=== PATIENT | male | born 1995 | race Caucasian/White ===

== ENCOUNTER 2019-01-16 02:20 | Emergency (ER) | payer SELFPAY ==
[~2019-01-16] VITALS: Ht 182.9 cm; Wt 80.3 kg
--- NOTE | 2019-01-16 02:24 | ED.ADGEN ---
Adult General Chief Complaint Chief Complaint ".. I know I got bad teeth.. and I fracture off this one in the back .. years ago.. but now it is hurting.. and I got swelling on my face..." HPI HPI Patient is a 23 year old male who presents with above hx and complaints of dental pain and was appears to be dental abscess. On tooth 31. Patient has swelling on exterior mandible area. No trismus. Adenopathy at ankle jaw. Patient denies any history immunosuppression. Up-to-date with vaccinations. No recent travel. No specific ill contacts. Does have other areas of dental decay. Patient does smoke. Review of Systems Review of Systems Constitutional: Denies fever or chills [] Eyes: Denies change in visual acuity, redness, or eye pain [] HENT: Denies nasal congestion or sore throat []complaints of dental pain and facial swelling Respiratory: Denies cough or shortness of breath [] Cardiovascular: No additional information not addressed in HPI [] GI: Denies abdominal pain, nausea, vomiting, bloody stools or diarrhea [] : Denies dysuria or hematuria [] Musculoskeletal: Denies back pain or joint pain [] Integument: Denies rash or skin lesions [] Neurologic: Denies headache, focal weakness or sensory changes [] Endocrine: Denies polyuria or polydipsia [] All other systems were reviewed and found to be within normal limits, except as documented in this note. Family History Family History Noncontributory Current Medications Current Medications Current Medications Medications (Trade) Dose Ordered Sig/Yajaira Start Time Stop Time Status Last Admin Dose Admin Acetaminophen (Tylenol) 1,000 mg 1X ONCE 01/16/19 02:45 01/16/19 03:03 DC 01/16/19 02:59 1,000 MG Ceftriaxone Sodium (Rocephin Im) 1 gm 1X ONCE 01/16/19 02:45 01/16/19 03:03 DC 01/16/19 02:59 1 GM Ceftriaxone Sodium (Rocephin) 1 gm STK-MED ONCE 01/16/19 02:47 01/16/19 02:48 DC Ketorolac Tromethamine (Toradol Im) 60 mg 1X ONCE 01/16/19 02:45 01/16/19 03:03 DC 01/16/19 02:59 60 MG Metronidazole (Flagyl) 500 mg 1X ONCE 01/16/19 02:45 01/16/19 03:03 DC 01/16/19 02:59 500 MG Allergies Allergies Allergies Coded Allergies Type Severity Reaction Last Updated Verified No Known Drug Allergies 01/16/19 No Physical Exam Physical Exam Constitutional: Well developed, well nourished, moderately acute distress, non- toxic appearance. [] HENT: Normocephalic, atraumatic, bilateral external ears normal, oropharynx moist, no oral exudates, nose normal. [Dental caries and tooth 31 is decayed into gum. Mandible and facial swelling on a of tooth 31 Eyes: PERRLA, EOMI, conjunctiva normal, no discharge. [] Neck: Normal range of motion, no tenderness, supple, no stridor. [] Cardiovascular:Heart rate regular rhythm, no murmur [] Lungs & Thorax: Bilateral breath sounds equal at apex with scattered wheezes on auscultation [] Abdomen: Bowel sounds normal, soft, no tenderness, no masses, no pulsatile masses. [] Skin: Warm, dry, no erythema, no rash. [] Back: No tenderness, no CVA tenderness. [] Extremities: No tenderness, no cyanosis, no clubbing, ROM intact, no edema. [] Neurologic: Alert and oriented X 3, normal motor function, normal sensory function, no focal deficits noted. [] Psychologic: Affect normal, judgement normal, mood normal. [] Current Patient Data Vital Signs Vital Signs Date Time Temp Pulse Resp B/P (MAP) Pulse Ox O2 Delivery O2 Flow Rate FiO2 01/16/19 02:40 97.2 77 18 98 Room Air EKG EKG [] Radiology/Procedures Radiology/Procedures [] Course & Med Decision Making Course & Med Decision Making Pertinent Labs and Imaging studies reviewed. (See chart for details) Advised patient nothing we do tonight will fix his underlying problem. Must see a dentist that does dental extractions. Patient take Keflex 500 mg 3 times a day and Flagyl 500 mg 3 times a day. Patient encouraged to stop smoking. Take Tylenol and ibuprofen for pain. For marked pain to take Vicoprofen up to 4 times a day. Must follow-up. Return if any concerns. [] Final Impression Final Impression 1. Dental Pain[] tooth 31 2. Dental abscess tooth 31 3. Tobacco use Dragon Disclaimer Dragon Disclaimer This electronic medical record was generated, in whole or in part, using a voice recognition dictation system. Discharge Summary Visit Information Final Diagnosis Problems Medical Problems: (1) Dental abscess Status: Acute Brief Hospital Course Allergies Allergies Coded Allergies Type Severity Reaction Last Updated Verified No Known Drug Allergies 01/16/19 No Vital Signs Vital Signs Date Time Temp Pulse Resp B/P (MAP) Pulse Ox O2 Delivery O2 Flow Rate FiO2 01/16/19 02:40 97.2 77 18 98 Room Air Brief Hospital Course Mr. Schneider is a 23 old male who presented with dental pain and dental abscess tooth 31 Discharge Information Condition at Discharge: Stable Disposition/Orders: D/C to Home Dischare Medications Current Medications Ceftriaxone Sodium (Rocephin Im) 1 gm 1X ONCE IM Last administered on at 02:59; Admin Dose 1 GM; Start 01/16/19 at 02:45; Stop 01/16/19 at 03:03; Status DC Metronidazole (Flagyl) 500 mg 1X ONCE PO Last administered on 01/16/19at 02:59; Admin Dose 500 MG; Start 01/16/19 at 02:45; Stop 01/16/19 at 03:03; Status DC Ketorolac Tromethamine (Toradol Im) 60 mg 1X ONCE IM Last administered on 01/16/19at 02:59; Admin Dose 60 MG; Start 01/16/19 at 02:45; Stop 01/16/19 at 03:03; Status DC Acetaminophen (Tylenol) 1,000 mg 1X ONCE PO Last administered on 01/16/19at 02:59; Admin Dose 1,000 MG; Start 01/16/19 at 02:45; Stop 01/16/19 at 03:03; Status DC Ceftriaxone Sodium (Rocephin) 1 gm STK-MED ONCE .ROUTE ; Start 01/16/19 at 02:47; Stop 01/16/19 at 02:48; Status DC Active Scripts Active Flagyl (Metronidazole) 500 Mg Tablet 500 Mg PO TID 10 Days Keflex (Cephalexin) 500 Mg Capsule 500 Mg PO TID 10 Days Hydrocodone-Ibuprofen 7.5-200 (Hydrocodone/Ibuprofen) 1 Each Tablet 1 Tab PO PRN Q6HRS PRN Dragon Disclaimer This chart was dictated in whole or in part using Voice Recognition software in a busy, high-work load, and often noisy Emergency Department environment. It may contain unintended and wholly unrecognized errors or omissions. STEPHEN OJEDA MD Jan 16, 2019 02:24
[2019-01-16 02:40] VITALS: BP 117/69
[2019-01-16] MEDS ORDERED: METR500T PO (02:44)
[2019-01-16] MEDS ORDERED: HYDR-1179 PO (02:44)
[2019-01-16] MEDS ORDERED: CEPH-264 PO (02:44)
[2019-01-16] MEDS ORDERED: ACETAMINOPHEN 500 MG TABLET PO ONE (02:45)
[2019-01-16] MEDS ORDERED: KETOROLAC 60 MG/2 ML VIAL. IM ONE (02:45)
[2019-01-16] MEDS ORDERED: metroNIDAZOLE 500 MG TABLET PO ONE (02:45)
[2019-01-16] MEDS ORDERED: cefTRIAXone IM 1 GM VIAL IM ONE (02:45)
[2019-01-16] MEDS ORDERED: cefTRIAXone SODIUM 1 GM VIAL ONE (02:47)
== END 2019-01-16 03:00 | disposition home or self-care (01) ==
LOC: ER 02:20
DX: K04.7 Periapical abscess without sinus (principal); K02.9 Dental caries, unspecified; Z72.0 Tobacco use; Z79.899 Other long term (current) drug therapy
CPT/HCPCS: 96372; 99284; J0696; J1885

== ENCOUNTER 2019-05-04 15:13 | Emergency (ER) | payer SELFPAY ==
[~2019-05-04] VITALS: Ht 182.9 cm; Wt 85.3 kg
[~2019-05-04 15:13] MED LIST: CEPH-264 PO; HYDR-1179 PO; METR500T PO
[2019-05-04 15:23] VITALS: BP 115/65
== END 2019-05-04 15:20 | disposition left against medical advice (07) ==
LOC: ER 15:13
DX: S01.511A Laceration without foreign body of lip, initial encounter (principal); Z53.21 Procedure and treatment not carried out due to patient leaving prior to being seen by health care provider; W21.11XA Struck by baseball bat, initial encounter; Y93.89 Activity, other specified; Y92.89 Other specified places as the place of occurrence of the external cause; Y99.8 Other external cause status

== ENCOUNTER 2019-05-22 18:59 | Emergency (ER) | payer SELFPAY ==
[~2019-05-22] VITALS: Ht 182.9 cm; Wt 85.3 kg
--- NOTE | 2019-05-22 19:15 | ED.ADGEN ---
Past History Past Medical History: No Pertinent History Past Surgical History: No Surgical History Alcohol Use: Occasionally Drug Use: Marijuana Adult General Chief Complaint Chief Complaint ".. I know I have bad teeth.. and bad cavities..but tonight the whole Rt. side of my face and Rt. jaw blew up.. my neck on Rt side almost feels swollen... . It is so swollen..and painful... I feel like I am having fever and chills... " HPI HPI Patient is a 24 year old male who presents with complaints of dental pain . Patient has history of chronic dental cavities and pain. Patient however states that he has had marked swelling, erythema, and pain on the right side is face and right mandible. Patient has multiple areas dental decay but area of molar 31 it has eroded into the gum. There is no pointing abscess currently but he does have swelling on his right lower face mandible. No Trismus. Edema does not appear to have spread under the tongue or lower into soft tissue of neck. Does have adenopathy at ankle jaw. Patient denies history of immunosuppression. No history of IV drug use. Patient does smoke. No recent travel. No specific ill contacts. Review of Systems Review of Systems Constitutional: Subjective complaints of fever or chills [] Eyes: Denies change in visual acuity, redness, or eye pain [] HENT: Denies nasal congestion or sore throat []complaints of right facial and mandible swelling and pain Respiratory: Denies cough or shortness of breath [] Cardiovascular: No additional information not addressed in HPI [] GI: Denies abdominal pain, nausea, vomiting, bloody stools or diarrhea [] : Denies dysuria or hematuria [] Musculoskeletal: Denies back pain or joint pain [] Integument: Denies rash or skin lesions [] Neurologic: Denies headache, focal weakness or sensory changes [] Endocrine: Denies polyuria or polydipsia [] All other systems were reviewed and found to be within normal limits, except as documented in this note. Family History Family History Noncontributory Current Medications Current Medications Current Medications Medications (Trade) Dose Ordered Sig/Yajaira Start Time Stop Time Status Last Admin Dose Admin Ceftriaxone Sodium (Rocephin Im) 1 gm 1X ONCE 05/22/19 19:30 05/22/19 19:31 DC 05/22/19 19:36 1 GM Ketorolac Tromethamine (Toradol Im) 60 mg 1X ONCE 05/22/19 19:30 05/22/19 19:31 DC 05/22/19 19:37 60 MG Allergies Allergies Allergies Coded Allergies Type Severity Reaction Last Updated Verified No Known Drug Allergies 01/16/19 No Physical Exam Physical Exam Constitutional: inacute distress, non-toxic appearance. [] HENT: Normocephalic, atraumatic, bilateral external ears normal, oropharynx moist, no oral exudates, nose normal. Except findings as noted in history of present illness Eyes: PERRLA, EOMI, conjunctiva normal, no discharge. [] Neck: Normal range of motion, no tenderness, supple, no stridor. [] Cardiovascular:Heart rate regular rhythm, no murmur [] Lungs & Thorax: Bilateral breath sounds equal apex with scattered wheezes on auscultation [] Abdomen: Bowel sounds normal, soft, no tenderness, no masses, no pulsatile masses. [] Skin: Warm, dry, no erythema, no rash. [] Back: No tenderness, no CVA tenderness. [] Extremities: No tenderness, no cyanosis, no clubbing, ROM intact, no edema. [] Neurologic: Alert and oriented X 3, normal motor function, normal sensory function, no focal deficits noted. [] Psychologic: Affect anxious, judgement normal, mood normal. [] Current Patient Data Vital Signs Vital Signs Date Time Temp Pulse Resp B/P (MAP) Pulse Ox O2 Delivery O2 Flow Rate FiO2 05/22/19 20:00 100 18 95 05/22/19 18:59 98.4 Room Air EKG EKG [] Radiology/Procedures Radiology/Procedures [] Course & Med Decision Making Course & Med Decision Making Pertinent Labs and Imaging studies reviewed. (See chart for details) Advised patient must see a dentist or oral surgeon. Patient is unable to get into a dentist or a clinic locally consider follow-up at [facility] dental school or the oral surgery clinic. Take Keflex 500 mg 3 times a day. Take Tylenol and ibuprofen for pain. Must follow-up. Impressed upon patient this could become a serious medical issue if swelling and infection spreads into the soft tissue of the neck and under the tongue. Must be followed up. [] Final Impression Final Impression 1. Dental caries-dental pain 2. Facial cellulitis[] Dragon Disclaimer Dragon Disclaimer This electronic medical record was generated, in whole or in part, using a voice recognition dictation system. Dragon Disclaimer This chart was dictated in whole or in part using Voice Recognition software in a busy, high-work load, and often noisy Emergency Department environment. It may contain unintended and wholly unrecognized errors or omissions. STEPHEN OJEDA MD May 22, 2019 19:15
[2019-05-22] MEDS ORDERED: CEPH-264 PO (19:27)
[2019-05-22] MEDS ORDERED: KETOROLAC 60 MG/2 ML VIAL. IM ONE (19:30)
[2019-05-22] MEDS ORDERED: cefTRIAXone IM 1 GM VIAL IM ONE (19:30)
[2019-05-22 20:00] VITALS: BP 137/86
== END 2019-05-22 20:00 | disposition home or self-care (01) ==
LOC: ER 18:59
DX: K02.9 Dental caries, unspecified (principal); L03.211 Cellulitis of face
CPT/HCPCS: 96372; 99284; J0696; J1885

== ENCOUNTER 2019-09-26 04:15 | Emergency (ER) | payer SELFPAY ==
[~2019-09-26] VITALS: Ht 182.9 cm; Wt 85.3 kg
[2019-09-26] MEDS ORDERED: HYDR-3165 PO (04:34)
[2019-09-26] MEDS ORDERED: AMOX1TAB61 PO (04:34)
[2019-09-26] MEDS ORDERED: KETOROLAC 30 MG/ML VIAL. ONE (04:38)
[2019-09-26] MEDS ORDERED: KETOROLAC 60 MG/2 ML VIAL. IM ONE (04:45)
[2019-09-26] MEDS ORDERED: KETOROLAC 30 MG/ML VIAL. IM ONE (04:45)
[2019-09-26 05:10] VITALS: BP 106/65
--- NOTE | 2019-09-26 05:38 | PHYS DOC ---
Past History Past Medical History: No Pertinent History Past Surgical History: No Surgical History Alcohol Use: Occasionally Drug Use: None Adult General Chief Complaint Chief Complaint: DENTAL PROBLEM HPI HPI Patient is a [24 yo m with cracked tooth for one year now three days increased pain and swelling. patient notes that pain is increasing even just with closing jaw. mild swelling of jaw noted he says. he is going to try to get into a dentist osbaldo i did give him dental clinic information to prescribe him medication antibiotics return precautions advised. Current Medications Current Medications Current Medications Medications (Trade) Dose Ordered Sig/Yajaira Start Time Stop Time Status Last Admin Dose Admin Ketorolac Tromethamine (Toradol 30mg Vial) 30 mg STK-MED ONCE 09/26/19 04:38 09/26/19 04:38 DC Ketorolac Tromethamine (Toradol Im) 30 mg 1X ONCE 09/26/19 04:45 09/26/19 05:00 DC Allergies Allergies Allergies Coded Allergies Type Severity Reaction Last Updated Verified No Known Drug Allergies 01/16/19 No Physical Exam Physical Exam Constitutional: Well developed, well nourished, no acute distress, non-toxic appearance. [] HENT: Normocephalic, atraumatic, bilateral external ears normal, very poor dentition to large cavities basically have entirely eaten away at the left lower molar there is a small tender swelling to the angle of the mandible but no appreciable drainable abscess in the mouth. No Chula's angina findings. Eyes: PERRLA, EOMI, conjunctiva normal, no discharge. [] Neck: Normal range of motion, no tenderness, supple, no stridor. [] Pulmonary: Normal respiratory effort no increased work of breathing no obvious chest wall trauma Extremities: No tenderness, no cyanosis, no clubbing, ROM intact, no edema. [] Neurologic: Alert and oriented X 3, normal motor function, normal sensory function, no focal deficits noted. [] Psychologic: Affect normal, judgement normal, mood normal. [] Current Patient Data Vital Signs Vital Signs Date Time Temp Pulse Resp B/P (MAP) Pulse Ox O2 Delivery O2 Flow Rate FiO2 09/26/19 05:10 82 18 99 09/26/19 04:15 97.5 121/79 (93) Room Air EKG EKG [] Radiology/Procedures Radiology/Procedures [] Course & Med Decision Making Course & Med Decision Making Pertinent Labs and Imaging studies reviewed. (See chart for details) [] Dragon Disclaimer Dragon Disclaimer This electronic medical record was generated, in whole or in part, using a voice recognition dictation system. Departure Departure: Impression: Primary Impression: Toothache Disposition: HOME, SELF-CARE Condition: STABLE Patient Instructions: Toothache-Brief Scripts Hydrocodone Bit/Acetaminophen (NORCO 5-325 TABLET) 1 Each Tablet 1-2 TAB PO Q4-6HRS PRN for PAIN, #8 TAB Prov: LOUIS BECKHAM MD 09/26/19 Amoxicillin/Potassium Clav (AUGMENTIN 875-125 TABLET) 1 Each Tablet 1 TAB PO BID for tooth for 10 Days, #20 TAB 0 Refills Prov: LOUIS BECKHAM MD 09/26/19 LOUIS BECKHAM MD Sep 26, 2019 05:38
== END 2019-09-26 05:10 | disposition home or self-care (01) ==
LOC: ER 04:15
DX: K08.89 Other specified disorders of teeth and supporting structures (principal); K03.81 Cracked tooth
CPT/HCPCS: 96372; 99283; J1885

== ENCOUNTER 2020-04-15 15:21 | Emergency (ER) | payer SELFPAY ==
[~2020-04-15] VITALS: Ht 180.3 cm; Wt 93.6 kg
[~2020-04-15 15:21] MED LIST changes: +AMOX1TAB61 PO; +HYDR-3165 PO
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
[2020-04-15 17:07] VITALS: BP 106/65
== END 2020-04-15 17:07 | disposition left against medical advice (07) ==
LOC: ER 15:21
DX: S80.01XA Contusion of right knee, initial encounter (principal); S50.01XA Contusion of right elbow, initial encounter; S90.01XA Contusion of right ankle, initial encounter; Y08.89XA Assault by other specified means, initial encounter; Y93.89 Activity, other specified; Y92.89 Other specified places as the place of occurrence of the external cause; Y99.8 Other external cause status
CPT/HCPCS: 99281; 99283

== ENCOUNTER 2021-02-27 10:42 | Emergency (ER) | payer SELFPAY ==
[~2021-02-27] VITALS: Ht 180.3 cm; Wt 93.6 kg
[2021-02-27] MEDS ORDERED: IV NORMAL SALINE 1,000ML 1,000 ML IV ONE (11:45)
[2021-02-27] MEDS ORDERED: ONDANSETRON PF 4 MG/2 ML VIAL. IVP ONE (11:45)
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
[2021-02-27 11:59] LABS: BASO # 0.1 x10^3/uL (0.0-0.2); BASO % 1 % (0-3); EOS % 0 % (0-3); HEMATOCRIT 49.8 % (39.0-53.0); HEMOGLOBIN 16.9 g/dL (13.0-17.5); LYMPH # 2.8 x10^3/uL (1.0-4.8); LYMPH % 25 % (24-48); MEAN CORPUSCULAR HEMOGLOBIN 31 pg (25-35); MEAN CORPUSCULAR HGB CONC 34 g/dL (31-37); MEAN CORPUSCULAR VOLUME 93 fL (79-100); MONO # 0.8 x10^3/uL (0.0-1.1); MONO % 8 % (0-9); NEUT # 7.5 x10^3uL (1.8-7.7); NEUT % 67 % (31-73); PLATELET COUNT 246 x10^3/uL (140-400); RED BLOOD COUNT 5.38 x10^6/uL (4.30-5.70); RED CELL DISTRIBUTION WIDTH 13.9 % (11.5-14.5); WHITE BLOOD COUNT 11.2 x10^3/uL (4.0-11.0)
--- NOTE | 2021-02-27 11:59 | NUR ---
FLOR WITH PAT TEAM NOTIFIED FOR AN EVALUATION @3089.
[2021-02-27 12:03] LABS: CALCIUM 9.8 mg/dL (8.5-10.1); CREATININE 0.8 mg/dL (0.7-1.3); GFR 119.8; POTASSIUM 3.5 mmol/L (3.5-5.1)
[2021-02-27 12:10] LABS: ACETAMIN < 2.0 mcg/mL (10-30); ETHANOL 39 mg/dL (0-10)
[2021-02-27 12:14] LABS: ALBUMIN 4.8 g/dL (3.4-5.0); ALBUMIN/GLOBULIN RATIO 1.1 (1.0-1.7); MAGNESIUM 1.8 mg/dL (1.8-2.4); TOTAL BILIRUBIN 1.2 mg/dL (0.2-1.0)
--- NOTE | 2021-02-27 12:32 | EKG ---
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
[2021-02-27 13:34] LABS: BACTERIA,URINE 0 /HPF (0-FEW); BILIRUBIN,URINE SMALL (NEG); CLARITY,URINE HAZY; COLOR,URINE AMBER; GLUCOSE,URINE NEG (NEG); NITRITE,URINE POS (NEG); RBC,URINE 0 /HPF (0-2); SQUAMOUS EPITHELIAL CELL,UR OCC /LPF; UROBILINOGEN,URINE 0.2 mg/dL (0.2 mg/dL); WBC,URINE OCC /HPF (0-4)
[2021-02-27 13:37] LABS: BARBITURATES NEG (NEG); BENZODIAZEPINES NEG (NEG); CANNABINOIDS POS (NEG); COCAINE NEG (NEG); METHADONE NEG (NEG); OPIATES NEG (NEG); PHENCYCLIDINE NEG (NEG)
[2021-02-27 13:38] VITALS: BP 118/76
[2021-02-27] MEDS ORDERED: CHLO25CA9 PO (13:42)
[2021-02-27 13:45] LABS: AMPHETAMINE/METHAMPHETAMINE NEG (NEG)
[2021-02-27] MEDS ORDERED: chlordiazePOXIDE HCL 25 MG CAPSULE PO ONE (13:45)
== END 2021-02-27 14:25 | disposition home or self-care (01) ==
LOC: ER 10:42
DX: F10.20 Alcohol dependence, uncomplicated (principal); R11.2 Nausea with vomiting, unspecified; Z20.822 Contact with and (suspected) exposure to COVID-19; Y90.1 Blood alcohol level of 20-39 mg/100 ml
CPT/HCPCS: 80053; 80307; 80329; 81001; 83605; 83735; 83880; 84100; 84484; 85025; 85610; 87086; 93005; 96361; 96374; 96375; 99284; C9803; G0480; J2060; J2405; J7030; U0003

== ENCOUNTER → 2021-06-21 | Outpatient (CLI) | payer OTHER ==
[~2021-06-21] MED LIST changes: +CHLO25CA9 PO
[2021-06-26 12:15] LABS: HCV ULTRA QUANT PCR 2620000 IU/mL (.)
== END ==
LOC: LAB 13:07
PROVIDERS: ATTEND Nurse Practitioner Family
DX: B20 Human immunodeficiency virus [HIV] disease (principal)
CPT/HCPCS: 86703; 86705; 86709; 86803; 87340; 87522

== ENCOUNTER 2021-09-11 01:07 | Emergency (ER) | payer SELFPAY ==
[~2021-09-11] VITALS: Ht 180.3 cm; Wt 77.3 kg
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
[2021-09-11 01:50] LABS: BASO # 0.1 x10^3/uL (0.0-0.2); BASO % 1 % (0-3); EOS # 0.1 x10^3/uL (0.0-0.7); EOS % 1 % (0-3); HEMOGLOBIN 15.2 g/dL (13.0-17.5); LYMPH % 46 % (24-48); MEAN CORPUSCULAR HEMOGLOBIN 32 pg (25-35); MEAN CORPUSCULAR HGB CONC 35 g/dL (31-37); MEAN CORPUSCULAR VOLUME 92 fL (79-100); MONO # 1.1 x10^3/uL (0.0-1.1); MONO % 10 % (0-9); NEUT # 4.5 x10^3uL (1.8-7.7); NEUT % 41 % (31-73); PLATELET COUNT 250 x10^3/uL (140-400); RED BLOOD COUNT 4.77 x10^6/uL (4.30-5.70); RED CELL DISTRIBUTION WIDTH 14.9 % (11.5-14.5)
--- NOTE | 2021-09-11 01:51 | RAD ---
XR HAND 3 VIEWS 09/11/2021 1:31 AM INDICATION: Punched wall COMPARISON: None available. TECHNIQUE: 3 views of the right and 3 views of the left hand are provided. FINDINGS/ IMPRESSION: Left hand: There is no acute fracture or dislocation. Joint spaces are maintained. Bone mineralizatio n is within normal limits. Regional soft tissues are within normal limits. There is no soft tissue ga s or osseous erosion. No radiopaque foreign body. Right hand: There is remodeling of the neck of the right fifth metacarpal. There is subtle linear nguyen ency in this region which could represent an acute on chronic fracture. Correlate with point tenderne ss. No significant displacement or intra-articular involvement. Ossific fragment the base of the fift h metatarsal could reflect sequela of remote trauma. Electronically signed by: Rosie Ernst MD (09/11/2021 1:49 AM) KEVON
[2021-09-11 01:55] LABS: CALCIUM 8.6 mg/dL (8.5-10.1); CREATININE 0.7 mg/dL (0.7-1.3); GFR 138.6; POTASSIUM 3.5 mmol/L (3.5-5.1)
[2021-09-11 01:57] LABS: BARBITURATES NEG (NEG); BENZODIAZEPINES NEG (NEG); CANNABINOIDS NEG (NEG); COCAINE NEG (NEG); METHADONE NEG (NEG); OPIATES NEG (NEG); PHENCYCLIDINE NEG (NEG)
[2021-09-11 02:00] LABS: BACTERIA,URINE 0 /HPF (0-FEW); CLARITY,URINE CLEAR; COLOR,URINE YELLOW; GLUCOSE,URINE NEG (NEG); NITRITE,URINE NEG (NEG); RBC,URINE 0 /HPF (0-2); SQUAMOUS EPITHELIAL CELL,UR OCC /LPF; UROBILINOGEN,URINE 0.2 mg/dL (0.2 mg/dL); WBC,URINE OCC /HPF (0-4)
[2021-09-11 02:01] LABS: ACETAMIN < 2.0 mcg/mL (10-30); ETHANOL 177 mg/dL (0-10)
[2021-09-11 02:01] LABS: AMPHETAMINE/METHAMPHETAMINE NEG (NEG)
[2021-09-11 02:02] LABS: SALIC < 2.8 mg/dL (2.8-20.0)
[2021-09-11] MEDS ORDERED: PENICILLIN V K 250 MG TABLET. PO ONE (08:45)
[2021-09-11] MEDS ORDERED: ACETAMINOPHEN 500 MG TABLET PO ONE (10:29)
[2021-09-11 15:00] VITALS: BP 127/70
[2021-09-11] MEDS ORDERED: PENI500T PO (15:26)
== END 2021-09-11 15:39 | disposition home or self-care (01) ==
LOC: ER 01:07
DX: S00.83XA Contusion of other part of head, initial encounter (principal); R45.851 Suicidal ideations; K02.9 Dental caries, unspecified; M79.641 Pain in right hand; M79.642 Pain in left hand; Z20.822 Contact with and (suspected) exposure to COVID-19; W22.01XA Walked into wall, initial encounter; Y93.89 Activity, other specified; Y92.89 Other specified places as the place of occurrence of the external cause; Y99.8 Other external cause status
CPT/HCPCS: 36415; 73130; 80048; 80307; 80329; 81001; 85025; 87426; 99285; G0480; U0003

== ENCOUNTER 2021-10-07 10:37 | Emergency (ER) | payer SELFPAY ==
[~2021-10-07] VITALS: Ht 180.3 cm; Wt 85.5 kg
[~2021-10-07 10:37] MED LIST changes: +PENI500T PO
--- NOTE | 2021-10-07 10:42 | PHYS DOC ---
Past History Past Medical History: No Pertinent History Additional Past Medical Histor: PTSD, Hep C Past Surgical History: Other Additional Past Surgical Histo: right arm reattached Alcohol Use: Heavy Adult General HPI HPI Patient is a 26-year-old male presents with chief complaint of nonbloody nonbilious emesis over the last couple of days. States he is a heavy alcohol user and last drink was last night. States he does drink daily and is usually vodka. Denies any other drug use. States he had been able to eat anything today but has had some fluids. Denies any recent travels, traumas, illnesses, fevers, chest pain, shortness of breath. Denies any dysuria, hematuria, blood in the stool or diarrhea. Review of Systems Review of Systems Review of systems otherwise unremarkable except noted in HPI Allergies Allergies Allergies Coded Allergies Type Severity Reaction Last Updated Verified No Known Drug Allergies 01/16/19 No Physical Exam Physical Exam Constitutional: Well developed, well nourished, no acute distress, non-toxic appearance. [] HENT: Normocephalic, atraumatic, oropharynx moist, no oral exudates, nose normal. [] Eyes:conjunctiva normal, no discharge. [] Neck: Normal range of motion, no tenderness, supple, no stridor. [] Cardiovascular:Heart rate regular rhythm, no murmur [] Lungs & Thorax: No respiratory distress Abdomen:soft, no tenderness, no masses, no pulsatile masses. [] Skin: Warm, dry, no erythema, no rash. [] Extremities: No tenderness, no cyanosis, no clubbing, ROM intact, no edema. [] Neurologic: Alert and oriented X 3, normal motor function, normal sensory function, no focal deficits noted. [] Psychologic: Affect normal, judgement normal, mood normal. [] EKG EKG [] Radiology/Procedures Radiology/Procedures [] Heart Score C/O Chest Pain: No Risk Factors: Risk Factors: DM, Current or recent (<one month) smoker, HTN, HLP, family history of CAD, obesity. Risk Scores: Risk Factors: DM, Current or recent (<one month) smoker, HTN, HLP, family history of CAD, obesity. Course & Med Decision Making Course & Med Decision Making Patient is a 26-year-old male who presents with nausea vomiting Vital signs initially notable for tachycardia which resolved in the ED. Physical exam noted above. Given medications for symptoms. Laboratory analysis not concerning. On reassessment patient stated symptoms had resolved, and took p.o. without issue. Stated that he needed to be discharged as he [facility] this [facility], was feeling better and ready to go home. Advised ceasing alcohol use after discussing the risks to health. Discussed symptomatic treatment at home and diet over the next few days. Advised to keep his upcoming appointment with [facility] tomorrow. Gave return precautions to the ED. Patient grateful, verbalized understanding and agreed with plan of discharge. [] Dragon Disclaimer Dragon Disclaimer This electronic medical record was generated, in whole or in part, using a voice recognition dictation system. Departure Departure: Impression: Primary Impression: Nausea & vomiting Disposition: HOME / SELF CARE / HOMELESS Condition: STABLE Referrals: PCP,DAVID (PCP) CARMEN CHAWLA MD Patient Instructions: Nausea and Vomiting Additional Instructions: Thank you for coming into the emergency department tonight and allowing us to take care of you. Please read the attached information carefully go over things we discussed. Please stay well-hydrated. Please take your nausea medicine as prescribed. Please eat a light clear diet over the next couple of days as we discussed. Please keep your appointment at the [facility] today. Please keep your upcoming appointment with [facility]. Please follow-up with your primary care physician as soon as you can to update on ED visit and set up a follow-up. Please come back with new or concerning symptoms as discussed. ERNA MONTGOMERY MD Oct 07, 2021 10:42
[2021-10-07] MEDS: IV RINGERS SOLUTION,LACTATED 1,000 ML IV ONE (11:00)
[2021-10-07] MEDS: diphenhydrAMINE 50 MG/ML VIAL IVP ONE (11:08)
[2021-10-07] MEDS: ONDANSETRON PF 4 MG/2 ML VIAL. IVP ONE (11:08)
[2021-10-07] MEDS: METOCLOPRAMIDE HCL 10 MG/2 ML VIAL. IVP ONE (11:09)
[2021-10-07 11:39] LABS: BASO # 0.1 x10^3/uL (0.0-0.2); BASO % 1 % (0-3); EOS % 0 % (0-3); HEMATOCRIT 44.8 % (39.0-53.0); HEMOGLOBIN 15.2 g/dL (13.0-17.5); LYMPH % 28 % (24-48); MEAN CORPUSCULAR HEMOGLOBIN 31 pg (25-35); MEAN CORPUSCULAR HGB CONC 34 g/dL (31-37); MEAN CORPUSCULAR VOLUME 92 fL (79-100); MONO # 0.4 x10^3/uL (0.0-1.1); MONO % 5 % (0-9); NEUT # 4.6 x10^3uL (1.8-7.7); NEUT % 65 % (31-73); PLATELET COUNT 216 x10^3/uL (140-400); RED BLOOD COUNT 4.86 x10^6/uL (4.30-5.70); RED CELL DISTRIBUTION WIDTH 13.9 % (11.5-14.5); WHITE BLOOD COUNT 7.1 x10^3/uL (4.0-11.0)
[2021-10-07 11:41] LABS: CREATININE 0.7 mg/dL (0.7-1.3); GFR 138.6; POTASSIUM 3.5 mmol/L (3.5-5.1)
[2021-10-07 11:47] LABS: ALBUMIN/GLOBULIN RATIO 1.1 (1.0-1.7); MAGNESIUM 1.6 mg/dL (1.8-2.4); TOTAL BILIRUBIN 0.4 mg/dL (0.2-1.0); TOTAL PROTEIN 7.5 g/dL (6.4-8.2)
[2021-10-07 12:30] VITALS: BP 134/80
[2021-10-07] MEDS: ONDANSETRON ODT 4 MG TAB.RAPDIS PO ONE (12:30)
[2021-10-07] MEDS: MAGNESIUM OXIDE 400 MG TABLET PO ONE (12:33)
[2021-10-07 12:53] LABS: CLARITY,URINE CLEAR; COLOR,URINE YELLOW; GLUCOSE,URINE NEG (NEG); NITRITE,URINE NEG (NEG); UROBILINOGEN,URINE 0.2 mg/dL (0.2 mg/dL)
[2021-10-07 13:04] LABS: BACTERIA,URINE 0 /HPF (0-FEW); RBC,URINE OCC /HPF (0-2); SQUAMOUS EPITHELIAL CELL,UR FEW /LPF; WBC,URINE OCC /HPF (0-4)
== END 2021-10-07 12:42 | disposition home or self-care (01) ==
LOC: ER 10:37
DX: R11.2 Nausea with vomiting, unspecified (principal); F10.20 Alcohol dependence, uncomplicated; Y90.9 Presence of alcohol in blood, level not specified
CPT/HCPCS: 36415; 80053; 81001; 83690; 83735; 85025; 96361; 96374; 96375; 99284; J1200; J2405; J2765; J7120; Q0162

== ENCOUNTER 2021-10-27 17:10 | Emergency (ER) | payer SELFPAY ==
[~2021-10-27] VITALS: Ht 180.3 cm; Wt 77.1 kg
--- NOTE | 2021-10-27 17:34 | EKG ---
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
[2021-10-27 17:50] LABS: BASO # 0.2 x10^3/uL (0.0-0.2); BASO % 2 % (0-3); EOS % 0 % (0-3); HEMATOCRIT 46.6 % (39.0-53.0); HEMOGLOBIN 15.8 g/dL (13.0-17.5); LYMPH # 2.9 x10^3/uL (1.0-4.8); LYMPH % 24 % (24-48); MEAN CORPUSCULAR HEMOGLOBIN 31 pg (25-35); MEAN CORPUSCULAR HGB CONC 34 g/dL (31-37); MEAN CORPUSCULAR VOLUME 91 fL (79-100); MONO # 0.6 x10^3/uL (0.0-1.1); MONO % 5 % (0-9); NEUT # 8.4 x10^3uL (1.8-7.7); NEUT % 69 % (31-73); PLATELET COUNT 278 x10^3/uL (140-400); RED CELL DISTRIBUTION WIDTH 12.9 % (11.5-14.5); WHITE BLOOD COUNT 12.1 x10^3/uL (4.0-11.0)
--- NOTE | 2021-10-27 17:50 | PHYS DOC ---
Past History Past Medical History: No Pertinent History Additional Past Medical Histor: HEP C (CARLOS ALBERTO GREGORY MD) Past Surgical History: Other Additional Past Surgical Histo: RT HAND (CARLOS ALBERTO GREGORY MD) Alcohol Use: Heavy (CARLOS ALBERTO GREGORY MD) General Adult EDM: Chief Complaint: OVERDOSE HPI: HPI: Patient is a 26-year-old male coming in for suicidal ideations. Patient tried to harm himself earlier by drinking half a bottle of ZzzQuil at noon, 5 hours prior to arrival. Patient has a history of SI and depression. Patient is taking Lexapro but does not think it has been helping. Patient has a history of alcohol abuse and drinks about a pint of whiskey a day. Patient states he has had alcohol withdrawal seizures in the past. Last drink around 8 PM yesterday. Denies any hallucinations. Patient states he does not have access to any guns. Is currently early with his girlfriend and cannot deny any recent stressors. (CARLOS ALBERTO GREGORY MD) Review of Systems: Review of Systems: All other systems within normal limits except for as noted in the HPI (CARLOS ALBERTO GREGORY MD) Current Medications: Current Meds: Current Medications Medications (Trade) Dose Ordered Sig/Yajaira Start Time Stop Time Status Last Admin Dose Admin Multivitamins/ Minerals 10 ml/ Folic Acid 1 mg/ Thiamine HCl 100 mg/Lactated Ringer's 1,011.3 ml @ 1,011.3 mls/hr 1X ONCE 10/27/21 18:00 10/27/21 18:59 (CARLOS ALBERTO GREGORY MD) Allergies: Allergies: Allergies Coded Allergies Type Severity Reaction Last Updated Verified No Known Drug Allergies 10/07/21 No (CARLOS ALBERTO GREGORY MD) Physical Exam: PE: Constitutional: Well developed, well nourished, no acute distress, non-toxic appearance. [] HENT: Normocephalic, atraumatic, bilateral external ears normal, nose normal. [] Eyes: PERRLA, conjunctiva normal, no discharge. [] Neck: No rigidity, supple, no stridor. [] Cardiovascular: Regular rate and rhythm, brisk cap refill [] Lungs & Thorax: Non labored symmetric respirations, no tachypnea or respiratory distress [] Abdomen: Soft, nondistended. Skin: Warm, dry, no erythema, no rash. [] Back: Unremarkable Extremities: No deformities, range of motion grossly intact, no lower extremity edema [] Neurologic: Alert and oriented X 3, no focal deficits noted. [] Psychologic: Affect normal, judgement normal, mood normal. [] (CARLOS ALBERTO GREGORY MD) EKG: EKG: Sinus tachycardia, heart rate 103 bpm, slight left axis deviation, normal intervals, no ectopy. No STEMI [] (CARLOS ALBERTO GREGORY MD) Radiology/Procedures: Radiology/Procedures: [] (CARLOS ALBERTO GREGORY MD) Heart Score: C/O Chest Pain: N/A Risk Factors: Risk Factors: DM, Current or recent (<one month) smoker, HTN, HLP, family history of CAD, obesity. Risk Scores: Score 0 - 3: 2.5% MACE over next 6 weeks - Discharge Home Score 4 - 6: 20.3% MACE over next 6 weeks - Admit for Clinical Observation Score 7 - 10: 72.7% MACE over next 6 weeks - Early Invasive Strategies (CARLOS ALBERTO GREGORY MD) Course & Med Decision Making: Course & Med Decision Making Pending medical clearance and labs at shift change. (CARLOS ALBERTO GREGORY MD) Course & Med Decision Making Patient care handed off to me at checkout. Patient alert and oriented no acute distress. Laboratory analysis not concerning. Vital signs not concerning. Patient able to take p.o. Patient cleared from poison control. Bed found at [facility] in the morning, 10/28/2021. (ERNA MONTGOMERY MD) Dragon Disclaimer: Dragon Disclaimer: This electronic medical record was generated, in whole or in part, using a voice recognition dictation system. (CARLOS ALBERTO GREGORY MD) Departure Departure: Referrals: DAYA RODRIGUEZ APRN (PCP) CARLOS ALBERTO GREGORY MD Oct 27, 2021 17:50 ERNA MONTGOMERY MD Oct 27, 2021 22:18
[2021-10-27 17:58] LABS: CALCIUM 8.8 mg/dL (8.5-10.1); CREATININE 0.9 mg/dL (0.7-1.3); GFR 103.7; POTASSIUM 3.6 mmol/L (3.5-5.1)
[2021-10-27] MEDS ORDERED: MVI, ADULT NO.4 WITH VIT K 10 ML, FOLIC ACID INJ 1 MG, THIAMINE INJ 100 MG in IV RINGER... IV ONE (18:00)
[2021-10-27 18:03] LABS: ALBUMIN 3.8 g/dL (3.4-5.0); ALBUMIN/GLOBULIN RATIO 1.1 (1.0-1.7); MAGNESIUM 1.7 mg/dL (1.8-2.4); TOTAL BILIRUBIN 0.3 mg/dL (0.2-1.0); TOTAL PROTEIN 7.4 g/dL (6.4-8.2)
[2021-10-27 18:05] LABS: ACETAMIN < 2 mcg/mL (10-30); ETHANOL < 10 mg/dL (0-10); SALIC 3.2 mg/dL (2.8-20.0)
[2021-10-27 18:55] LABS: CLARITY,URINE CLEAR; COLOR,URINE YELLOW; GLUCOSE,URINE NEG (NEG)
[2021-10-27 18:56] LABS: BACTERIA,URINE 0 /HPF (0-FEW); NITRITE,URINE NEG (NEG); RBC,URINE 0 /HPF (0-2); UROBILINOGEN,URINE 0.2 mg/dL (0.2 mg/dL); WBC,URINE 0 /HPF (0-4)
[2021-10-27 19:01] LABS: BARBITURATES NEG (NEG); BENZODIAZEPINES NEG (NEG); CANNABINOIDS NEG (NEG); COCAINE NEG (NEG); METHADONE NEG (NEG); OPIATES NEG (NEG); PHENCYCLIDINE NEG (NEG)
[2021-10-27 19:02] LABS: AMPHETAMINE/METHAMPHETAMINE NEG (NEG)
[2021-10-27 19:24] LABS: INFLUENZA A PATIENT NEGATIVE (NEGATIVE); INFLUENZA B PATIENT NEGATIVE (NEGATIVE)
[2021-10-27] MEDS ORDERED: FOLIC ACID 1 MG TABLET ONE (20:29)
[2021-10-27] MEDS ORDERED: THIAMINE 200 MG/2 ML VIAL. IV ONE (20:29)
--- NOTE | 2021-10-27 20:49 | EKG ---
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
[2021-10-27] MEDS ORDERED: IBUPROFEN 600 MG TABLET. PO ONE (23:00)
[2021-10-27] MEDS ORDERED: ACETAMINOPHEN 500 MG TABLET PO ONE (23:00)
--- NOTE | 2021-10-28 02:34 | EKG ---
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
[2021-10-28] MEDS ORDERED: diphenhydrAMINE 50 MG/ML VIAL IVP ONE (02:45)
[2021-10-28] MEDS ORDERED: LORA-254 PO (14:04)
[2021-10-28 15:32] VITALS: BP 163/80
== END 2021-10-28 15:33 | disposition home or self-care (01) ==
LOC: ER 17:10
DX: T50.992A Poisoning by other drugs, medicaments and biological substances, intentional self-harm, initial encounter (principal); F10.10 Alcohol abuse, uncomplicated; Z20.822 Contact with and (suspected) exposure to COVID-19; Y90.0 Blood alcohol level of less than 20 mg/100 ml; Y92.89 Other specified places as the place of occurrence of the external cause
CPT/HCPCS: 36415; 80053; 80307; 80329; 81001; 83735; 84484; 85025; 87428; 93005; 96374; 96375; 99285; G0480; J1200; J2060; J7120; U0003

== ENCOUNTER 2021-11-03 13:51 | Emergency (ER) | payer SELFPAY ==
[~2021-11-03] VITALS: Ht 180.3 cm; Wt 87.2 kg
[~2021-11-03 13:51] MED LIST changes: +LORA-254 PO
[2021-11-03] MEDS ORDERED: ONDANSETRON ODT 4 MG TAB.RAPDIS PO ONE (14:00)
--- NOTE | 2021-11-03 14:02 | PHYS DOC ---
Past History Past Medical History: No Pertinent History Additional Past Medical Histor: HEP C (CARLOS ALBERTO GREGORY MD) Past Surgical History: Other Additional Past Surgical Histo: RT HAND (CARLOS ALBERTO GREGORY MD) Alcohol Use: Heavy (CARLOS ALBERTO GREGORY MD) General Adult HPI: HPI: Patient is a 26-year-old male brought in by EMS from home after intentional overdose. Patient took approximately 5 of the 10 mg Lexapro tablets at approximately 1305. Patient states his girlfriend called EMS after he had told her what he had done. Patient states he had been taking them up till a few days ago he stopped. Denies any coingestions, states he drank a beer this morning. Patient was seen here a week ago and discharged with safety plan and had adequate follow-up. Patient requested to follow-up for his alcohol abuse and [facility]. Patient was given activated charcoal by EMS which he had vomited up prior to arrival. (CARLOS ALBERTO GREGORY MD) Review of Systems: Review of Systems: All other systems within normal limits except for as noted in the HPI (CARLOS ALBERTO GREGORY MD) Allergies: Allergies: Allergies Coded Allergies Type Severity Reaction Last Updated Verified No Known Drug Allergies 10/07/21 No (CARLOS ALBERTO GREGORY MD) Physical Exam: PE: Constitutional: Well developed, well nourished, no acute distress, non-toxic appearance. [] HENT: Normocephalic, atraumatic, bilateral external ears normal, nose normal. [] Eyes: PERRLA, conjunctiva normal, no discharge. [] Neck: No rigidity, supple, no stridor. [] Cardiovascular: Regular rate and rhythm, brisk cap refill [] Lungs & Thorax: Non labored symmetric respirations, no tachypnea or respiratory distress [] Abdomen: Soft, nondistended. Skin: Warm, dry, no erythema, no rash. [] Back: Unremarkable Extremities: No deformities, range of motion grossly intact, no lower extremity edema [] Neurologic: Alert and oriented X 3, no focal deficits noted. [] Psychologic: Affect normal, judgement normal, mood normal. [] (CARLOS ALBERTO GREGORY MD) EKG: EKG: Sinus rhythm, heart rate 96 beats minute, normal intervals, no ectopy, no STEMI [] (CARLOS ALBERTO GREGORY MD) Radiology/Procedures: Radiology/Procedures: [] (CARLOS ALBERTO GREGORY MD) Heart Score: C/O Chest Pain: No Risk Factors: Risk Factors: DM, Current or recent (<one month) smoker, HTN, HLP, family history of CAD, obesity. Risk Scores: Score 0 - 3: 2.5% MACE over next 6 weeks - Discharge Home Score 4 - 6: 20.3% MACE over next 6 weeks - Admit for Clinical Observation Score 7 - 10: 72.7% MACE over next 6 weeks - Early Invasive Strategies (CARLOS ALBERTO GREGORY MD) Course & Med Decision Making: Course & Med Decision Making Pertinent Labs and Imaging studies reviewed. (See chart for details) Poison control contacted and recommended repeat EKG at 4 hours and opts for 8 hours postingestion. Was evaluated by PAT and pending psychiatric placement after observational. [] (CARLOS ALBERTO GREGORY MD) Course & Med Decision Making Patient care handed off at checkout pending laboratory analysis and disposition. Patient awake alert and oriented no acute distress. Able to take p.o. Vital signs nonconcerning. Laboratory analysis not concerning. Cleared by poison control. Psychiatric assessment team liaison notified and placement pending. Rest of patient care till disposition handed off to day team. (ERNA MONTGOMERY MD) Dragon Disclaimer: Dragon Disclaimer: This electronic medical record was generated, in whole or in part, using a voice recognition dictation system. (CARLOS ALBERTO GREGORY MD) Departure Departure: Impression: Primary Impression: Alcohol abuse Additional Impressions: Intentional overdose Suicidal ideations [facility] Condition: STABLE Referrals: DAYA RODRIGUEZ APRN (PCP) CARLOS ALBERTO GREGORY MD Nov 03, 2021 14:02 ERNA MONTGOMERY MD Nov 03, 2021 18:09
[2021-11-03 14:33] LABS: BASO # 0.1 x10^3/uL (0.0-0.2); BASO % 1 % (0-3); EOS # 0.1 x10^3/uL (0.0-0.7); EOS % 1 % (0-3); HEMATOCRIT 43.4 % (39.0-53.0); HEMOGLOBIN 15.2 g/dL (13.0-17.5); LYMPH # 3.5 x10^3/uL (1.0-4.8); LYMPH % 50 % (24-48); MEAN CORPUSCULAR HEMOGLOBIN 32 pg (25-35); MEAN CORPUSCULAR HGB CONC 35 g/dL (31-37); MEAN CORPUSCULAR VOLUME 90 fL (79-100); MONO # 0.5 x10^3/uL (0.0-1.1); MONO % 7 % (0-9); NEUT # 2.8 x10^3uL (1.8-7.7); NEUT % 41 % (31-73); PLATELET COUNT 215 x10^3/uL (140-400); RED BLOOD COUNT 4.81 x10^6/uL (4.30-5.70); RED CELL DISTRIBUTION WIDTH 12.9 % (11.5-14.5)
[2021-11-03 14:38] LABS: BACTERIA,URINE 0 /HPF (0-FEW); CLARITY,URINE CLEAR; COLOR,URINE YELLOW; GLUCOSE,URINE NEG (NEG); NITRITE,URINE NEG (NEG); RBC,URINE 0 /HPF (0-2); UROBILINOGEN,URINE 0.2 mg/dL (0.2 mg/dL); WBC,URINE 0 /HPF (0-4)
[2021-11-03 14:41] LABS: BARBITURATES NEG (NEG); BENZODIAZEPINES NEG (NEG); CANNABINOIDS NEG (NEG); COCAINE NEG (NEG); METHADONE NEG (NEG); OPIATES NEG (NEG); PHENCYCLIDINE NEG (NEG)
[2021-11-03 14:46] LABS: AMPHETAMINE/METHAMPHETAMINE NEG (NEG)
[2021-11-03 14:49] LABS: CALCIUM 8.6 mg/dL (8.5-10.1); CREATININE 0.6 mg/dL (0.7-1.3); GFR 165.5; POTASSIUM 3.8 mmol/L (3.5-5.1)
[2021-11-03 14:51] LABS: INFLUENZA A PATIENT NEGATIVE (NEGATIVE); INFLUENZA B PATIENT NEGATIVE (NEGATIVE)
[2021-11-03 14:55] LABS: ALBUMIN 3.7 g/dL (3.4-5.0); ALBUMIN/GLOBULIN RATIO 1.1 (1.0-1.7); MAGNESIUM 1.9 mg/dL (1.8-2.4); PHOSPHORUS 2.2 mg/dL (2.6-4.7); TOTAL BILIRUBIN 0.3 mg/dL (0.2-1.0); TOTAL PROTEIN 7.2 g/dL (6.4-8.2)
[2021-11-03 14:57] LABS: ACETAMIN < 2.0 mcg/mL (10-30); ETHANOL 116 mg/dL (0-10); SALIC 3.1 mg/dL (2.8-20.0)
--- NOTE | 2021-11-03 18:35 | EKG ---
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
--- NOTE | 2021-11-03 19:05 | EKG ---
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
[2021-11-04 01:51] LABS: CALCIUM 8.6 mg/dL (8.5-10.1); CREATININE 0.7 mg/dL (0.7-1.3); GFR 138.6; MAGNESIUM 1.8 mg/dL (1.8-2.4)
--- NOTE | 2021-11-04 04:47 | EKG ---
[address] [address] Test Date: 2021-11-03 Test Time: 21:00:45 Pat Name: GAVINO RITCHIE Department: Room: Gender: M Lithostripper: GERALDINE : 1995 Requested By: ERNA MONTGOMERY Order Number: [id number] Reading MD: Jose Beltran Measurements Intervals [place] Rate: 73 P: 52 CT: 166 QRS: 36 QRSD: 88 T: 26 QT: 404 QTc: 449 Interpretive Statements SINUS RHYTHM Electronically Signed On 11-06-2021 18:23:06 CDT by Jose Beltran
[2021-11-04 13:30] VITALS: BP 112/71
== END 2021-11-04 14:02 ==
LOC: ER 13:51
DX: T43.222A Poisoning by selective serotonin reuptake inhibitors, intentional self-harm, initial encounter (principal); R45.851 Suicidal ideations; F10.20 Alcohol dependence, uncomplicated; Z20.822 Contact with and (suspected) exposure to COVID-19; Y90.5 Blood alcohol level of 100-119 mg/100 ml; Y92.89 Other specified places as the place of occurrence of the external cause
CPT/HCPCS: 36415; 80048; 80053; 80307; 80329; 81001; 82947; 83735; 84100; 85025; 87428; 93005; 99285; G0480; Q0162; U0003